=== PATIENT | male | born 1945 | race Caucasian/White ===

== ENCOUNTER 2023-05-09 12:49 | Emergency (ER) | payer MEDICARE, OTHER ==
[~2023-05-09] VITALS: Ht 172.7 cm; Wt 95.3 kg
[2023-05-09] MEDS ORDERED: PRED50TA2 PO (15:45)
[2023-05-09] MEDS ORDERED: SOLU-MEDROL 125MG VIAL IM ONE (16:00)
[2023-05-09 16:01] VITALS: BP 138/88
[2023-05-09] MEDS ORDERED: HYDR-4060 PO (16:20)
== END 2023-05-09 16:29 | disposition home or self-care (01) ==
LOC: EDH 12:49
DX: M06.9 Rheumatoid arthritis, unspecified (principal); M25.512 Pain in left shoulder; M25.511 Pain in right shoulder; I10 Essential (primary) hypertension; E78.00 Pure hypercholesterolemia, unspecified
CPT/HCPCS: 99283; 96372; J2930